=== PATIENT | female | born 1975 | race Caucasian/White ===

== ENCOUNTER → 2019-01-11 | Day surgery (SDC) | payer BC | LOC: MSO 07:04 | DX: D17.24 Benign lipomatous neoplasm of skin and subcutaneous tissue of left leg (principal); K21.9 Gastro-esophageal reflux disease without esophagitis; Z90.49 Acquired absence of other specified parts of digestive tract; Z87.891 Personal history of nicotine dependence | CPT/HCPCS: J2704; J3010; J7120 ==